=== PATIENT | female | born 1960 | race Caucasian/White ===

== ENCOUNTER 2017-01-09 04:27 | Emergency (ER) | payer BC ==
[~2017-01-09] VITALS: Ht 167.6 cm; Wt 84.0 kg
[2017-01-09] MEDS ORDERED: LEVO75TA5 PO (05:36)
[2017-01-09] MEDS ORDERED: KETOROLAC 30 MG/1 ML IM ONE (06:00)
[2017-01-09 06:21] LABS: PATH.CAST-FLAG NOT PRESENT; SPERM-FLAG NOT PRESENT; SRC-FLAG NOT PRESENT; XTAL-FLAG NOT PRESENT; YLC-FLAG NOT PRESENT
[2017-01-09] MEDS ORDERED: KETOROLAC 30 MG/1 ML ONE (06:23)
[2017-01-09 07:44] VITALS: BP 115/74
== END 2017-01-09 07:45 | disposition home or self-care (01) ==
LOC: ED 05:49
DX: J02.0 Streptococcal pharyngitis (principal)
CPT/HCPCS: 71020; 81001; 87086; 96372; 99285; J1885